=== PATIENT | male | born 2000 | race Caucasian/White ===

== ENCOUNTER 2018-05-11 13:34 | Emergency (ER) | payer OTHER ==
[~2018-05-11] VITALS: Ht 172.7 cm; Wt 72.2 kg
[2018-05-11 13:39] VITALS: Ht 172.7 cm; Wt 72.2 kg
[2018-05-11 15:22] VITALS: BP 128/74
== END 2018-05-11 15:22 | disposition home or self-care (01) ==
LOC: ED 13:34
DX: I45.19 Other right bundle-branch block (principal); R07.89 Other chest pain